=== PATIENT | female | born 1995 ===

== ENCOUNTER 2022-04-13 11:51 | Outpatient (CLI) | payer OTHER, SELFPAY ==
[2022-04-13 14:17] LABS: Amphetamine Screen Urine POSITIVE (Negative); Barbiturate Screen Urine Negative (Negative); Benzodiazepines Screen Urine Negative (Negative); Cannabinoid Screen Urine POSITIVE (Negative); Cocaine Screen Urine Negative (Negative); Methadone Screen Urine Negative (Negative); Methamphetamines Screen Urine POSITIVE (Negative); Opiate Screen Urine Negative (Negative); Oxycodone Screen Urine Negative (Negative); Phencyclidine Screen Urine Negative (Negative); Tricyclic Antidepressant Urine Negative (Negative)
[2022-04-13 15:48] LABS: Hepatitis B Surface Antigen* Negative (Negative)
[2022-04-13 15:59] LABS: HIV 1/2/P24 Combo Screen* Negative (Negative)
[2022-04-13 16:06] LABS: Hepatitis C Virus Antibody* Negative (Negative)
[2022-04-13 18:55] LABS: Chlamydia DNA Amplified* NOT DETECTED (No Detected); GC DNA Amplified* NOT DETECTED (No Detected)
[2022-04-14 18:37] LABS: Rapid Plasma Reagin (RPR) Non Reactive (Non Reactive)
[2022-04-15 00:21] LABS: Rubella Antibody IgG 12.4 IU/mL; Varicella-Zoster Virus Ab, IgG 133.9 IV
== END 2022-04-13 11:52 | disposition home or self-care (01) ==
PROVIDERS: Visit Provider Advanced Practice Midwife
DX: Z34.91 Encounter for supervision of normal pregnancy, unspecified, first trimester (principal); F19.11 Other psychoactive substance abuse, in remission
CPT/HCPCS: 76817; 80306; 84443; 86592; 86703; 86762; 86787; 86803; 86850; 86900; 86901; 87086; 87340; 87491; 87591

== ENCOUNTER 2025-01-10 14:03 | Outpatient (CLI) | payer BC, SELFPAY ==
[2025-01-10 14:17] VITALS: BP 129/88; PULSE 72; PULSE 73; O2SAT 94
[2025-01-10] MEDS: LACTATED RINGERS 500 ML 500 ML 1000 ML IV (14:48)
[2025-01-10] MEDS: ONDANSETRON 2 MG/ML inj 4 MG IV (14:59)
[2025-01-10] MEDS: FAMOTIDINE 10 MG/ML inj 20 MG IVP (15:15)
[2025-01-10] MEDS: LACTATED RINGERS 1000 ML 1,000 ML IV (15:55)
[2025-01-10] MEDS: METOCLOPRAMIDE HCL 5 MG/ML INJ IVP (16:01)
[2025-01-10] MEDS: MULTIPLE VITAMINS INJECTION 10 ML in LACTATED RINGERS 1000 ML 1,000 ML 1010 ML IV (16:13)
--- NOTE | 2025-01-10 18:59 | P.OBLDTN_ITS ---
OB - Triage/Final Diagnosis Visit Information Date Seen: 01/10/25 Narrative: Ramya is a 29 year old 4 para 1 at 36.3 weeks gestation per outside records, who presents with hyperemesis in . She is not a patient of the [facility] but has been seen here in the past in a prior . She states that she was in town at her boyfriends sisters and she felt very sick. States that she has had hyperemesis through this and has lost at least 10 lbs. She denies being able to keep anything down today and has vomited multiple times today. She is unable to answer questions due to not feeling well and is a poor historian. She is uncertain what she has used previously in this to help with her nausea and vomiting or what has worked. She has had IV fluids many times but is not on scheduled IV fluid. She does endorse using Zofran, Reglan and Pepcid in the past. She was given IV fluids, 1L of LR with IV vitamins, Zofran, Benadryl, Reglan, Pepcid, and Methylprednisolone. After these medications and rest she was feeling better and was able to drink some juice. After that she was very insistent that she wanted to discharge now and was very fidgety and antsy. Limited teaching and education was performed due to her very strong desire to leave. She only allowed a few minutes of FHR tracing before asking to have the monitors taken off. We did discuss the [facility] and recommendations.We discussed staying on all the medication until delivery given that she is already over 36 weeks. Will plan to send her prescriptions for Prilosec, Meclizine, Reglan, Zofran and Colace and encouraged her to stay on a regular dosing of these medications. We also did discuss cannabinoid hyperemesis syndrome and the increases occurrences in . I did encourage her to stick with the medications prescribed and stop the THC for this reason. Discusse d that even if THC has worked for nausea in the past that there is a good chance this is contributing to her hyperemesis in . Her boyfriend was present for the entirety of this conversation and they both verbalized understanding and denies questions. She was having some contractions but denies feeling them. Evaluation Vital signs: Vital Signs - 24 hr 01/10/25 14:17 Pulse Rate 72 Blood Pressure 129/88 Pulse Oximetry 94 Fetus (Single) Heart Rate Baseline: 130 Upper Cutter Out Variability: Moderate (6-25) Monitor Accelerations: Present Monitor Decelerations: None
--- NOTE | 2025-01-10 19:21 | PC.OBNST ---
NST Note NST Note Start: 01/10/25 14:13 Freq: ONCE Status: Active Protocol: Document 01/10/25 19:00 [facility] (Rec: 01/10/25 19:15 [facility] [id number]) NST Note 5 Para (# of births) 1 EDC 02/04/25 Gestational Age In 36 Weeks & 3 Days Weeks & Days Patient Presented Nausea and vomiting with Complaint(s) of Other Complaints history of poorly treated hyperemesis through out pregancy. Reactive Yes Appropriate for Yes Gestational Age RN Cheng RN Date 01/10/25 Reactive Yes Appropriate for Yes Gestational Age RN Ahmet RN Date 01/10/25 OB NST charge Yes Complete NST Note Yes via Write Note The provider's electronic signature indicates the NST is reactive/appropriate for gestational age. *Note to provider: If an addendum is required, open the patient's chart and click on the note under the Nurse/Allied Health tab.
== END 2025-01-10 19:10 | disposition home or self-care (01) ==
LOC: OB OUT 14:05 → OB 14:06
PROVIDERS: Referring Provider Advanced Practice Midwife; Visit Provider Advanced Practice Midwife
DX: O21.0 Mild hyperemesis gravidarum (principal); Z3A.36 36 weeks gestation of pregnancy
CPT/HCPCS: 59025; G0463; J1200; J1308; J2405; J2765; J2919; J7120